=== PATIENT | female | born 2000 | race Hispanic/Latino ===

== ENCOUNTER 2019-02-27 15:08 | Emergency (ER) | payer OTHER ==
[2019-02-27] MEDS ORDERED: ACETAMINOPHEN EXTRA STRENGTH 500 MG TABLET ONE (15:23)
[2019-02-27 15:47] LABS: RAPID GROUP A STREP NEGATIVE (NEGATIVE)
== END 2019-02-27 16:13 | disposition home or self-care (01) ==
LOC: EDH 15:08 → EDBD 15:08 → EDH 16:13
DX: J10.1 Influenza due to other identified influenza virus with other respiratory manifestations (principal)
CPT/HCPCS: 81025; 87804; 87880